=== PATIENT | male | born 1945 | race Caucasian/White ===

== ENCOUNTER 2017-08-06 10:58 | Outpatient (CLI) | payer MEDICARE, BC ==
[~2017-08-06] VITALS: Ht 177.8 cm; Wt 86.8 kg
--- NOTE | ~2017-08-06 | HEMODYNAMI ---
PATIENT:CHRISTOPHER UPTON MEDICAL RECORD: [id number] : 47 LOCATION:DLeeannaCAT ADMISSION DATE: 08/06/17 Generatedon:08/06/201713:41 Patient name: CHRISTOPHER UPTON Patient #: [id number] SSN: : 1945 Date of study: 08/06/2017 Page: Of Hemodynamic Procedure Report Patient Data Patient Demographics Procedure consent was obtained First Name: CHRISTOPHER Gender: Male Last Name: ALEXSANDRA : 1945 [facility] Initial: MIRTA Age: 72 year(s) Patient #: [id number] Race: Unknown Additional ID: [id number] Contact details Address: [address] [place] [address] COTY FARIAS State: [place] City: [place] Zip code: [address] Admission Admission Data Admission Date: 08/06/2017 Admission Time: 10:58 Admit Source: Other Height (in.): 70 BSA: 2.05 (m2) Height (cm.): 177.8 BMI: 27.52 (kg/m2) Weight (lbs.): 191.8 Weight (kg.): 87 Lab Results Lab Result Date: 08/06/2017 Lab Result Time: 11:20 Biochemistry Name Units Result Min Max BUN mg/dl 22 --(----)-* 7 18 Creatinine mg/dl 1.2 --(---*)-- 0.6 1.3 CBC Name Units Result Min Max Hematocrit % 47 --(-*--)-- 42 54 Hemoglobin g/dl 16.1 --(--*-)-- 13.5 17.5 Procedure Procedure Types Cath Procedure Diagnostic Procedure LHC LHC w/Coronaries w/Grafts Miscellaneous Procedures Moderate Sedation up to 30 minutes Procedure Description Procedure Date Procedure Date: 08/06/2017 Procedure Start Time: 13:12 Procedure End Time: 13:41 Procedure Staff Name Function Veto Kan MD Performing Physician Allen Deleon RT Monitor Rick Connor RT Scrub Dexter Obrien RN Nurse Tosha Dolan RN Nurse Procedure Data Cath Procedure Fluoroscopy Diagnostic fluoroscopy Total fluoroscopy Time: 3.7 time: 3.7 min min Diagnostic fluoroscopy Total fluoroscopy dose: 416 dose: 416 mGy mGy Contrast Material Contrast Material Type Amount (ml) Isovue 300 80 Entry Location Entry Primary Successful Side Size Upsize Upsize Entry Closure Succes sful Closure Location (Fr) 1 (Fr) 2 (Fr) Remarks Device Remarks Femoral Right 5 Fr Exoseal artery Estimated blood loss: 10 ml Diagnostic catheters Device Type Used For End Catheter Placement Cordis 5Fr JL 4.0 Procedure Catheter (MP) Diagnostic Infinity 5Fr Procedure AR 2 MOD catheter Diagnostic Infinity 5Fr Procedure IM catheter Cordis 5Fr Pigtail Procedure Catheter (MP) Procedure Complications No complications Procedure Medications Medication Administration Route Dosage 0.9% NaCl I.V. 100 ml/hr Lidocaine 2% added to field 20 Oxygen NC 2 l/min Heparin Flush Bag added to field 2 bags (1000units/500ml NS) Fentanyl I.V. 50 mcg Versed I.V. 1 mg Versed I.V. 1 mg Fentanyl I.V. 50 mcg Hemodynamics Rest BSA: 2.05 (m2) HGB: 16.1 (g/dl) O2 Consumption: Estimated: 227.53 (ml/min) O2 Co nsumption indexed: Estimated:110.99 (ml/min/m) Heart Rate: 58 (bpm) Pressure Samples Time Site Value (mmHg) Purpose Heart Use Rate(bpm) 13:16 AO 157/74(105) Snapshot 55 13:25 LV 173/11,21 Snapshot 59 13:26 AO 163/71(105) Pullback 58 13:26 LV 164/7,17 Pullback 58 Gradients Valve Time Site 1 Site 2 Mean SEP/DFP Peak To Heart Use (mmHg) (sec/min) Peak Rate (mmHg) (bpm) Aortic 13:26 LV AO 8 16 1 58 164/7,17 163/71(105) Calculations Valve P-P Mean Valve Index Valve Source Name Gradient Area Flow (cm2) Aortic 1 8 1 8 Snapshots Pre Cath Intra NCS Post Cath Vital Signs Time Heart Resp SPO2 etCO2 NIBP (mmHg) Rhythm Pain Sedation Rate (ipm) (%) (mmHg) Status Level (bpm) 12:55:05 61 22 98 0 180/88(141) NSR 0 (11) 10(A) , No pain 13:00:02 58 17 99 26.3 163/87(131) NSR 0 (11) 10(A) , No pain 13:04:55 54 18 99 37.6 163/82(132) NSR 0 (11) 10(A) , No pain 13:09:44 63 15 97 0 146/76(122) NSR 0 (11) 9(A) , No pain 13:14:43 56 16 98 36.1 Measuring NSR 0 (11) 9(A) , No pain 13:15:14 54 14 98 9.7 151/75(126) NSR 0 (11) 9(A) , No pain 13:20:05 69 14 98 10.5 154/89(125) NSR 0 (11) 9(A) , No pain 13:24:53 56 14 98 0 155/83(127) NSR 0 (11) 10(A) , No pain 13:29:44 57 14 98 0 151/81(120) NSR 0 (11) 10(A) , No pain 13:34:35 56 23 98 27.8 157/84(132) NSR 0 (11) 10(A) , No pain 13:39:34 54 24 98 23.3 Measuring NSR 0 (11) 10(A) , No pain 13:40:05 59 17 98 33.8 167/83(136) NSR 0 (11) 10(A) , No pain Medications Time Medication Route Dose Verified Delivered Reason Notes Effe ctiveness by by 12:45:52 0.9% NaCl I.V. 100 Veto Tosha used for ml/hr Lucius Dolan RN procedure 12:46:07 Lidocaine 2% added 20ml Veto Veto for local to vial Lucius Kan MD anesthetic field 12:46:20 Oxygen NC 2 Veto Tosha used for l/min Lucius Dolan RN procedure 12:46:37 Heparin Flush added 2 Veto Veto used for Bag to bags Lucius Kan MD procedure (1000units/500ml field NS) 13:05:14 Fentanyl I.V. 50 Veto Tosha for mcg Lucius Dolan RN sedation 13:05:24 Versed I.V. 1 mg Veto Tosha for Lucius Dolan RN sedation 13:11:17 Versed I.V. 1 mg Veto Dolan RN sedation 13:11:27 Fentanyl I.V. 50 [place]eto [facility] [place] Dolan RN sedation Procedure Log Time Note 12:30:01 Dexter Obrien RN sent for patient. Start room use. 12:38:29 Informed consent obtained and on chart 12:38:33 Admit Source: Other 12:44:58 Diagnostic Cath status Elective 12:45:02 Time tracking: Regular hours 12:45:05 Plan of Care:Hemodynamics will remain stable., Cardiac rhythm will remain stable., Comfort level will be maintained., Respiratory function will remain adequate., Patient/ family verbilizes understanding of procedure., Procedure tolerated without complication., Recovers from procedure without complications.. 12:45:18 H&P Date Dictated: 07/09/2017 Within 30 days and on chart., H&P Addendum completed by physician on day of procedure. (MUST COMPLETE FOR ALL OUTPATIENTS). 12:45:52 0.9% NaCl 100 ml/hr I.V. was administered by Tosha Dolan RN; used for procedure; 12:46:07 Lidocaine 2% 20ml vial added to field was administered by Veto Kan MD; for local anesthetic; 12:46:20 Oxygen 2 l/min NC was administered by Tosha Dolan RN; used for procedure; 12:46:37 Heparin Flush Bag (1000units/500ml NS) 2 bags added to field was administered by Veto Kan MD; used for procedure; 12:48:03 Patient received from Pre/Post Procedure Room to CCL 1 Alert and oriented. Tansferred to table in Supine position. 12:48:04 Warm blankets applied, and barbara hugger turned on for patient comfort. 12:48:05 Correct patient and procedure confirmed by team. 12:49:53 Lab Result : BUN 22 mg/dl 12:49:53 Lab Result : Creatinine 1.2 mg/dl 12:49:53 Lab Result : Hematocrit 47 % 12:49:53 Lab Result : Hemoglobin 16.1 g/dl 12:50:17 Lab results completed and on chart. 12:51:13 ECG and BP/O2 sat monitors applied to patient. 12:53:56 Vital chart was started 12:58:53 Baseline sample Acquired. 12:59:02 Rhythm: sinus bradycardia 12:59:04 Full Disclosure recording started 12:59:05 Pre-procedure instructions explained to patient. 12:59:05 Pre-op teaching completed and patient verbalized understanding. 12:59:09 Family in patients room. 12:59:10 Patient NPO since Midnight. 12:59:13 Is the patient allergic to Iodine/contrast media? No. 12:59:14 Is patient on blood thinner?No 12:59:18 Patient diabetic? No. 12:59:25 Previous problem with sedation/anesthesia? No ? 12:59:26 Snore? Yes 12:59:28 Sleep apnea? No 12:59:29 Deviated septum? No 12:59:30 Opens mouth fully? Yes 12:59:30 Sticks out tongue? Yes 12:59:32 Airway obstruction? No ? 12:59:35 Dentures? No ? 12:59:38 Pre procedure: right dorsailis pedis pulse 1+ Palpable, but thready & weak; easily obliterated 12:59:42 Patient pain scale 0/10 ?. 12:59:51 IV patent on arrival in left forearm with 0.9% NaCl at [facility]. 12:59:55 Right groin area was prepped with chlora-prep and draped in sterile fashion 12:59:56 Alarms reviewed by R. N. 12:59:57 Sharps counted by scrub and verified by R.N. 13:00:01 Use device set Femoral Dx 13:00:02 Tegaderm 4 x 4 ([id number]) opened to sterile field. 13:00:04 ACIST: Hand Control (47336) opened to sterile field. 13:00:08 ACIST: Manifold (53337) opened to sterile field. 13:00:09 ACIST: Syringe (60887) opened to sterile field. 13:00:09 Bag Decanter (2002S) opened to sterile field. 13:00:10 Medline Cath Pack ([id number]) opened to sterile field. 13:00:10 Terumo 5Fr Hartsel Sheath opened to sterile field. 13:00:11 St Juan 260cm J .035 wire opened to sterile field. 13:00:12 Diagnostic Infinity 5Fr Multipack catheter opened to sterile field. 13:04:23 --------ALL STOP TIME OUT------ 13:04:24 Final Timeout: patient, procedure, and site verified with staff and physician. All members of the team are in agreement. 13:04:26 Right groin site verified by team. 13:04:28 Physical assessment completed. ASA score P 2 - A patient with mild systemic disease as per Veto Kan MD. 13:04:32 Sedation plan: IV Moderate Sedation Medication:Versed, Fentanyl 13:05:14 Fentanyl 50 mcg I.V. was administered by Tosha Dolan RN; for sedation; 13:05:24 Versed 1 mg I.V. was administered by Tosha Dolan RN; for sedation; 13:06:02 NEEDLE: Cook 18G 7cm Percutaneous Entry needle ([id number]) opened to sterile field. 13:07:53 Procedure type changed to Cath procedure, Diagnostic procedure, LHC, LHC w/Coronaries w/Grafts, Miscellaneous Procedures, Moderate Sedation up to 30 minutes 13:08:00 Patient Weight : 191.8 lbs 13:08:06 Patient Height : 70 inches 13:11:17 Versed 1 mg I.V. was administered by Tosha Dolan RN; for sedation; 13:11:27 Fentanyl 50 mcg I.V. was administered by Tosha Dolan RN; for sedation; 13:12:32 Procedure started. 13:12:55 Local anesthetic to right femoral artery with Lidocaine 2% by Veto Kan MD.INITIAL ACCESS ONLY 13:14:13 A 5 Fr sheath was inserted into the Right Femoral artery 13:15:04 A Cordis 5Fr JL 4.0 Catheter () was advanced over the wire and used for Procedure. 13:15:58 LCA angiography performed. 13:16:31 Catheter exchanged over wire. 13:17:38 A Diagnostic Infinity 5Fr AR 2 MOD catheter was advanced over the wire and used for Procedure. 13:18:01 RCA angiography performed. 13:18:33 SVG to RCA angiography performed. 13:21:02 SVG to Diag angiography performed. 13:21:22 Skip graft to OM1 and OM2. 13:21:25 Catheter exchanged over wire. 13:21:31 A Diagnostic Infinity 5Fr IM catheter was advanced over the wire and used for Procedure. 13:23:47 REID to LAD angiography performed. 13:24:26 Catheter exchanged over wire. 13:24:31 A Cordis 5Fr Pigtail Catheter (MP) was advanced over the wire and used for Procedure. 13:25:44 LV angiography performed. 13:25:45 LV gram done using SMALL 13:25:55 EF : 50 % 13:26:25 LV hemodynamics recorded. 13:26:28 Injector settings: Ml/sec: 10, Volume: 20, 13:33:06 Catheter removed. 13:33:14 Cordis 5Fr Exoseal opened to sterile field. 13:33:45 Sheath removed intact; hemostasis achieved with Exoseal to the Right Femoral artery. 13:33:48 Procedure ended.(Physican Out) 13:36:48 Fluoroscopy time 03.70 minutes. 13:36:58 Fluoroscopy dose: 416 mGy 13:36:58 Flurop Dose total: 416 13:37:03 Contrast amount:Isovue 300 80ml. 13:37:06 Sharps counted by scrub and verified by R.N. 13:37:07 Insertion/operative site no bleeding no hematoma. 13:37:12 Post-op/insertion site Right Femoral artery dressed using a 4 x 4 and Tegaderm. 13:37:13 Post Procedure Pulses reassessed and unchanged 13:37:16 Post-procedure physical assessment completed. ASA score P 2 - A patient with mild systemic disease as per Veto Kan MD. 13:37:19 Post procedure rhythm: unchanged. 13:37:21 Estimated blood loss: 10 ml 13:37:24 Post procedure instruction explained to patient.Patient verbalizes understanding. 13:37:24 Patient needs reinforcement of post procedure teaching. 13:37:32 Procedure and supply charges have been captured, reviewed, submitted and are correct. 13:37:35 Procedure Complication : No complications 13:41:04 Vital chart was stopped 13:41:05 See physician's report for complete and final results. 13:41:15 Report given to Pre/Post Procedure Room. 13:41:18 Patient transfered to Pre/Post Procedure Room with Stretcher. 13:41:22 Procedure ended. 13:41:22 Full Disclosure recording stopped 13:41:25 End room use (Document Last) Device Usage Item Name Manufacture Quantity Catalog Hospital Part Current Minimal Lot# / Number Charge Number Stock Stock Serial# Code Tegaderm 4 x 3M 1 1626W [id number] [id number] 5 4 (1626W) ACIST: Hand Acist 1 34890 892651 386184 154649 5 Control Medical (19068) Systems Inc ACIST: Acist 1 76535 278347 756096 615077 5 Manifold Medical (99921) Systems Inc ACIST: Acist 1 19090 440654 617945 449566 20 Syringe Medical (18896) Systems Inc Bag Decanter Microtek 1 2001S 434567 84663 592573 5 (2001S) Medical Inc. Medline Cath Cardinal 1 [id number] 215879 13228 172211 5 Pack Health ([id number]) Terumo 5Fr Terumo 1 BXQ868 430167 618390 057[address] [facility] [address] Juan 1 256794 142876 762878 045990 30 260cm J .035 wire Diagnostic Cardinal 1 VM3366 708427 45973 404112 30 Infinity 5Fr Health Multipack catheter NEEDLE: Cook [employer] Packets Medical 1 S97157 621250 53461 545758 5 18G 7cm Percutaneous Entry needle (I14339) Cordis 5Fr Cardinal 1 180291 5 JL 4.0 Health Catheter (MP) Diagnostic Cardinal 1 [id number] 591959 119700 436764 20 Infinity 5Fr Health AR 2 MOD catheter Diagnostic Cardinal 1 [id number] 296826 361323 413248 5 Infinity 5Fr Health IM catheter Cordis 5Fr Cardinal 1 739898 5 Pigtail Health Catheter (MP) Cordis 5Fr Cardinal 1 EX500 323262 972469 535901 10 [facility] [employer] Signature Audit [place] Stage Time Signature Unsigned Intra-Procedure 08/06/2017 Allen Deleon 1:41:40 PM RT(R) Signatures Monitor : Allen Deleon RT Signature : Date : Time : [id number] [place] [address]
[~2017-08-06 10:58] MED LIST: ASPIRIN325 MG PO; BYSTOLIC2.5 MG PO; CELEBREX200 MG PO; CRESTOR10 MG PO; MEDROL DOSE PACK4 MG PO; PRILOSEC20 MG PO; RESTORIL15 MG PO; TYLENOL W/CODEIN5 ML PO; ZITHROMAX200 MG/5 M PO
[2017-08-06] MEDS ORDERED: LIPITOR10 MG PO (11:17)
[2017-08-06] MEDS ORDERED: DUEXIS 800-26.1 EACH PO (11:18)
[2017-08-06 11:26] VITALS: BP 166/74; Ht 177.8 cm; Wt 86.8 kg
[2017-08-06 11:31] LABS: BASOPHILS 0.3 % (0-2); EOSINOPHILS 1.7 % (0-7); HEMOGLOBIN 16.1 g/dL (13.5-17.5); IMMATURE GRANULOCYTES 0.6 % (0-5); MCHC 34.3 g/dL (31.0-37.0); MCV 93.4 fL (80.0-100.0); MEAN PLATELET VOLUME 10.5 fL (7.4-10.4); MONOCYTES 9.3 % (2-11); NEUTROPHILS 65.1 % (40-80); PLATELET COUNT 241 10x3/uL (130-400); RBC 5.03 10x6/uL (4.20-6.10); WBC 7.7 10x3/uL (4.8-10.8)
[2017-08-06 11:38] LABS: CALCIUM 9.1 mg/dL (8.5-10.1); CREATININE - SERUM 1.2 mg/dL (0.6-1.3)
== END 2017-08-06 16:20 | disposition home or self-care (01) ==
LOC: D.CATH 10:58
PROVIDERS: Internal Medicine Cardiovascular Disease
DX: I25.119 Atherosclerotic heart disease of native coronary artery with unspecified angina pectoris (principal); R06.00 Dyspnea, unspecified; R94.39 Abnormal result of other cardiovascular function study; Z01.812 Encounter for preprocedural laboratory examination; Z95.1 Presence of aortocoronary bypass graft

== ENCOUNTER 2018-02-05 10:22 | Inpatient (IN) | payer MEDICARE, BC ==
[~2018-02-05] VITALS: Ht 177.8 cm; Wt 88.5 kg
--- NOTE | ~2018-02-05 | CN ---
PATIENT NAME:CHRISTOPHER UPTON MEDICAL RECORD: [id number] : 47 LOCATION:D.MS Chavez220 ADMIT DATE: 02/05/18 ACCOUNT: [id number] CONSULTING PHYSICIAN: SUHAIL DIA MD REFERRING PHYSICIAN: ANJELICA CASTELLANOS DO DATE OF CONSULTATION: 02/05/2018 CONSULT REQUESTING PHYSICIAN: Anjelica Castellanos DO REASON FOR CONSULTATION: Syncopal episode, questionable pneumonia. HISTORY OF PRESENT ILLNESS: Mr. Upton is a 72-year-old very pleasant gentleman who was diagnosed with pneumonia last week. He was given 3 doses of Rocephin IM and also given p.o. Levaquin. He was running fever from 102 to 104 at home. This morning while he was in Dr. Abraham's office, while the nurse was checking his blood pressure, the patient collapsed and the patient was hypotensive with a blood pressure in 90s. Now, awake and alert. Denies any fever and chill, no night sweats, no headache, just feeling weak. There is cough without much sputum production. There is no associated orthopnea and PND. REVIEW OF SYSTEMS: Mainly in the history of present illness. PAST MEDICAL HISTORY: 1. Hypertension. 2. Coronary artery disease. 3. History of skin cancer. 4. History of epiglottitis. 5. Gastroesophageal reflux disease. 6. History of gout. PAST SURGICAL HISTORY: 1. Surgery for carpal tunnel syndrome. 2. CABG. 3. Appendectomy. ALLERGIES: HE IS ALLERGIC TO NEOMYCIN, BACITRACIN, POLYMYXIN. PRESENT MEDICATIONS: [employer] is reviewed. PERSONAL AND SOCIAL HISTORY: The patient is and lives with his . He is an ex-smoker. He is a nondrinker, but he is drinking socially. FAMILY HISTORY: Noncontributory. PHYSICAL EXAMINATION: GENERAL: Now, the patient is lying comfortably in bed. He is not in acute distress. VITAL SIGNS: The blood pressure 143/79, pulse is 56, respiration is 18, temperature is 98.6, SpO2 is 96% on 2 liters nasal cannula. HEENT: Conjunctivae are pink. Sclerae are not icteric. NECK: Supple, no JVD. CHEST: There are bibasilar crackles. No wheezing. HEART: Rate and rhythm is regular, normal sound, no murmur. There are no carotid bruit. ABDOMEN: Soft, bowel sounds present. No hepatosplenomegaly. CONSULT REPORT [id number] CHRISTOPHER UPTON RECTAL: Deferred. EXTREMITIES: No cyanosis, no clubbing, no pedal edema. SKIN: Warm, normal turgor. CENTRAL NERVOUS SYSTEM: The patient is awake and alert. There are no obvious cranial nerve abnormality. The gait was not tested. IMPRESSION: 1. Tracheobronchitis. 2. Syncopal episode. The differential diagnosis, but not limited to; A. Dehydration. B. Hypotension. C. Vasovagal, rule out cardiac arrhythmias. I will doubt transient ischemic attack. 3. Fever of 102 to 104. 4. Hypertension. 5. Ex-smoker. 6. Suspect chronic obstructive pulmonary disease. 7. Coronary artery disease with gastroesophageal reflux disease. 8. Congestive heart failure with elevated proBNP. RECOMMENDATION: 1. Check the CT scan of the head. Discontinue vancomycin and meropenem. 2. Start him on Levaquin IV. 3. Follow up labs and chest radiograph. 4. Cardiac workup per Dr. Kan. Discussed with family. Dr. Castellanos, thank you for involving me in the care of Ms. Upton. TRANSINT:[id number] Voice Confirmation ID: [id number] DOCUMENT ID: [id number] SUHAIL DIA MD at 1806 CC: EMILY ABRAHAM [id number] DICTATION DATE: 02/05/181813 FORECLOSURE CLERK: 02/05/181946 DIS IN 02/07/18 [id number] [place] [address]
--- NOTE | ~2018-02-05 | EC ---
PATIENT:CHRISTOPHER UPTON DATE OF SERVICE: 02/05/18 SEX: M MEDICAL RECORD: [id number] DATE OF : [birth year] LOCATION:D.MS Mac AGE OF PATIENT: 72 ADMISSION DATE: 02/05/18 REFERRING PHYSICIAN: INTERPRETING PHYSICIAN: HERACLIO PEREZ MD ECHOCARDIOGRAM REPORT ECHO CHARGES 4 ECHO COMPLETE Date: 02/05 CLINICAL DIAGNOSIS: INC/BNP/SOB HX OF CAD/CABG ECHOCARDIOGRAPHIC MEASUREMENTS (adult normal given) AC root (d.<3.7cm) 3.2 cm LV Septum d (<1.2 cm> 1.8 cm Valve Excursion 2.1 cm LV Septum (systole) 1.9 cm Left Atria (s.<4.0cm> 3.8 cm LVPW d(<1.2cm) 1.5 cm RV (d.<2.3cm) 4.1 cm LVPW (sytole) 1.7 cm LV diastole(<5.6CM) 5.6 cm MV E-F(>70mm/sec) cm LV systole 4.2 cm LVOT Diameter 1.8 cm MV exc.(>10mm) 1.5 cm Est.ejection fraction (50-75%) % DOPPLER: LVIT cm/sec A 57.0 cm/sec E 80.0 cm/sec LA cm/sec RVSP 35 mmHg LVOT 95 cm/sec AOP1/2T m/s Asc. Ao 159 cm/sec RVOT cm/sec RA cm/sec PA 173 cm/sec AV Gradient Peak 10.17mmHg AV Mean 5.08 mmHg AV Area 1.2 cm MV Gradient Peak 4.67 mmHg MV Mean 1.48 mmHg MV Area cm COMMENTS: Gallery Or Museum Technician: Yas CUNNINGHAM Roller Coaster Engineer: 2 Dr. Kan TAPE# PACS Pericardial Effusion N DATE OF SERVICE: 02/06/2018 PROCEDURE: Echocardiogram. FINDINGS: 1. Left ventricular chamber size is mildly dilated. Left ventricular systolic function lower limits of normal at 45% to 50%. 2. Left atrium is within normal limits at 3.8 cm. Right atrium and right ventricle chamber sizes are mildly dilated. 3. Valvular structures have normal structure and motion. ECHOCARDIOGRAM REPORT [id number] CHRISTOPHER UPTON 4. Doppler interrogation reveals mild to moderate mitral regurgitation, mild tricuspid regurgitation, no other valvular insufficiency or stenosis. 5. No evidence of pericardial effusion or left ventricular thrombus. TRANSINT:[id number] Voice Confirmation ID: [id number] DOCUMENT ID: [id number] HERACLIO PEREZ MD at 1403 CC: [id number] DICTATION DATE: 02/06/18 1217 ELL TUTOR: 02/06/18 1231 DIS IN 02/07/18 [id number] [place] [id number]
[~2018-02-05 10:22] MED LIST changes: +DUEXIS 800-26.1 EACH PO; +LIPITOR10 MG PO
[2018-02-05 11:09] LABS: BASOPHILS 0.1 % (0-2); EOSINOPHILS 0.3 % (0-7); HEMOGLOBIN 12.7 g/dL (13.5-17.5); IMMATURE GRANULOCYTES 0.7 % (0-5); LYMPHOCYTES 14.6 % (15-50); MCHC 34.3 g/dL (31.0-37.0); MCV 90.2 fL (80.0-100.0); MEAN PLATELET VOLUME 10.6 fL (7.4-10.4); MONOCYTES 17.3 % (2-11); RDW 13.3 % (11.5-14.5)
[2018-02-05 11:14] LABS: PLATELET COUNT 148 10x3/uL (130-400)
[2018-02-05 11:24] LABS: ALBUMIN 2.7 g/dL (3.4-5.0); ALKALINE PHOSPHATASE 80 U/L (46-116); ALT (SGPT) 77 U/L (10-68); APTT 35.7 SECONDS (22.8-39.4); BILIRUBIN - TOTAL 0.53 mg/dL (0.2-1.3); CALC OSMOLALITY 277 mosm/kg (275-300); CALCIUM 8.3 mg/dL (8.5-10.1); CHLORIDE - SERUM 102 mmol/L (98-107); CREATININE - SERUM 1.4 mg/dL (0.6-1.3); GLUCOSE 146 mg/dL (74-106); POTASSIUM - SERUM 3.5 mmol/L (3.5-5.1); PROTEIN - SERUM 6.5 g/dL (6.4-8.2); SODIUM 136 mmol/L (136-145); UREA NITROGEN 20 mg/dL (7-18); eGFR NON AFRICAN AMERICAN 53 mL/min (90-120)
[2018-02-05 11:31] LABS: INR 1.15 (0.85-1.17); PROTIME 14.3 SECONDS (11.6-15.0)
[2018-02-05 11:39] LABS: AMYLASE - SERUM 37 U/L (25-115); CKMB 1.6 U/L (0.0-3.6); CREATINE KINASE 51 UL (21-232); D-DIMER-QUANTITATIVE 3.23 ug/mLFEU (0.20-0.54); LIPASE 155 U/L (73-393); PRO BNP 2443 pg/mL (0-125); TROPONIN-I 0.039 ng/mL (0.000-0.060)
[2018-02-05 13:31] LABS: APPEARANCE HAZY (CLEAR); BILIRUBIN NEGATIVE (NEGATIVE); COLOR YELLOW (YELLOW); GLUCOSE NEGATIVE (NEGATIVE); KETONE MODERATE mg/dL (NEGATIVE); NITRITE NEGATIVE (NEGATIVE); PROTEIN 1+ mg/dL (NEGATIVE); SPECIFIC GRAVITY 1.015 (1.005-1.020); UROBILINOGEN NORMAL (NORMAL)
[2018-02-05 13:33] LABS: BACTERIA MODERATE /hpf (NONE SEEN); GRANULAR CAST 0-5 /lpf (NONE SEEN); MUCUS <1+ /lpf (NONE SEEN); RED CELLS - URINE 0-5 /hpf (0-5); WHITE CELLS - URINE 0-5 /hpf (0-5)
[2018-02-05 16:02] LABS: CKMB 1.9 U/L (0.0-3.6); CREATINE KINASE 50 UL (21-232); TROPONIN-I 0.017 ng/mL (0.000-0.060)
[2018-02-05 16:30] VITALS: BP 143/79
[2018-02-05] MEDS ORDERED: LEVAQUIN500 MG PO (16:38)
[2018-02-05] MEDS ORDERED: ZYLOPRIM300 MG PO (16:39)
[2018-02-05 16:40] VITALS: BMI 28.0
[2018-02-05 21:15] VITALS: BP 155/81
[2018-02-05 22:24] LABS: CKMB 2.2 U/L (0.0-3.6); CREATINE KINASE 46 UL (21-232); TROPONIN-I < 0.017 ng/mL (0.000-0.060)
[2018-02-06 00:45] VITALS: BP 138/72
[2018-02-06 04:21] LABS: BASOPHILS 0 % (0-2); EOSINOPHILS 0 % (0-7); HEMATOCRIT 35.5 % (42.0-54.0); HEMOGLOBIN 12.4 g/dL (13.5-17.5); IMMATURE GRANULOCYTES 0.5 % (0-5); MCH 30.9 pg (26.0-34.0); MCHC 34.9 g/dL (31.0-37.0); MCV 88.5 fL (80.0-100.0); MEAN PLATELET VOLUME 10.5 fL (7.4-10.4); MONOCYTES 6.1 % (2-11); NEUTROPHILS 84.4 % (40-80); RBC 4.01 10x6/uL (4.20-6.10); RDW 13.1 % (11.5-14.5); WBC 7.5 10x3/uL (4.8-10.8)
[2018-02-06 04:22] LABS: PLATELET COUNT 178 10x3/uL (130-400)
[2018-02-06 04:50] LABS: ALBUMIN 2.6 g/dL (3.4-5.0); ALKALINE PHOSPHATASE 76 U/L (46-116); ALT (SGPT) 67 U/L (10-68); BILIRUBIN - TOTAL 0.44 mg/dL (0.2-1.3); CALC OSMOLALITY 277 mosm/kg (275-300); CALCIUM 8.8 mg/dL (8.5-10.1); CARBON DIOXIDE 25.9 mmol/L (21.0-32.0); CHLORIDE - SERUM 102 mmol/L (98-107); CKMB 2.1 U/L (0.0-3.6); CREATINE KINASE 40 UL (21-232); GLUCOSE 148 mg/dL (74-106); POTASSIUM - SERUM 3.8 mmol/L (3.5-5.1); PROTEIN - SERUM 6.5 g/dL (6.4-8.2); SODIUM 137 mmol/L (136-145); UREA NITROGEN 15 mg/dL (7-18)
[2018-02-06 05:05] LABS: TROPONIN-I 0.017 ng/mL (0.000-0.060); eGFR NON AFRICAN AMERICAN 78 mL/min (90-120)
[2018-02-06 08:02] VITALS: BP 109/87
[2018-02-06 12:13] VITALS: BP 113/68
[2018-02-06 13:22] VITALS: Ht 177.8 cm; Wt 88.5 kg
[2018-02-06 16:40] VITALS: BP 123/63
[2018-02-06 20:00] VITALS: BP 148/65
[2018-02-06 20:06] VITALS: BP 131/68
[2018-02-07 03:52] VITALS: BP 126/55
[2018-02-07 05:03] LABS: BASOPHILS 0.1 % (0-2); EOSINOPHILS 0.3 % (0-7); HEMATOCRIT 35.2 % (42.0-54.0); IMMATURE GRANULOCYTES 0.6 % (0-5); LYMPHOCYTES 13.6 % (15-50); MCH 30.5 pg (26.0-34.0); MCHC 34.1 g/dL (31.0-37.0); MCV 89.3 fL (80.0-100.0); MEAN PLATELET VOLUME 10.7 fL (7.4-10.4); MONOCYTES 14.1 % (2-11); NEUTROPHILS 71.3 % (40-80); PLATELET COUNT 235 10x3/uL (130-400); RBC 3.94 10x6/uL (4.20-6.10); RDW 13.2 % (11.5-14.5); WBC 9.8 10x3/uL (4.8-10.8)
[2018-02-07 06:04] LABS: ALBUMIN 2.5 g/dL (3.4-5.0); ANION GAP 10.7 mmol/L (8-16); BILIRUBIN - TOTAL 0.45 mg/dL (0.2-1.3); CALCIUM 8.4 mg/dL (8.5-10.1); CARBON DIOXIDE 27.8 mmol/L (21.0-32.0); CREATININE - SERUM 1.1 mg/dL (0.6-1.3); POTASSIUM - SERUM 3.5 mmol/L (3.5-5.1)
[2018-02-07 08:10] VITALS: BP 115/76
[2018-02-07] MEDS ORDERED: DOXYCYCLINE HY100 M2 PO (12:12)
[2018-02-07] MEDS ORDERED: MUCINEX600 MG PO (12:12)
[2018-02-07] MEDS ORDERED: FLORAJEN3 CAPS460 MG PO (12:12)
[2018-02-07] MEDS ORDERED: TESSALON PERLE100 MG PO (12:12)
== END 2018-02-07 13:07 | disposition home or self-care (01) | DRG 291 ==
LOC: D.ER 10:22 → D.EDHOLD 14:35 → D.MS 14:35
PROVIDERS: Family Medicine
DX: I11.0 Hypertensive heart disease with heart failure (principal); J18.9 Pneumonia, unspecified organism; J44.0 Chronic obstructive pulmonary disease with (acute) lower respiratory infection; E86.0 Dehydration; J40 Bronchitis, not specified as acute or chronic; I50.21 Acute systolic (congestive) heart failure; I25.10 Atherosclerotic heart disease of native coronary artery without angina pectoris; K21.9 Gastro-esophageal reflux disease without esophagitis; R55 Syncope and collapse; E78.5 Hyperlipidemia, unspecified; Z95.1 Presence of aortocoronary bypass graft; Z87.891 Personal history of nicotine dependence

== ENCOUNTER → 2018-08-03 09:13 | Outpatient (CLI) | payer MEDICARE, BC ==
[2018-02-06 13:22] VITALS: BMI 27.9
[~2018-08-03 09:13] MED LIST changes: +DOXYCYCLINE HY100 M2 PO; +FLORAJEN3 CAPS460 MG PO; +LEVAQUIN500 MG PO; +MUCINEX600 MG PO; +TESSALON PERLE100 MG PO; +ZYLOPRIM300 MG PO
[2018-08-03 12:37] LABS: MACROPHAGES BF 42 %; NEUT - BF 41 %
== END | disposition home or self-care (01) ==
LOC: D.LABREF 09:13
PROVIDERS: Orthopaedic Surgery
DX: M25.561 Pain in right knee (principal)

== ENCOUNTER → 2018-08-17 15:24 | Outpatient (CLI) | payer MEDICARE, BC ==
[2018-02-06 13:22] VITALS: BMI 27.9
[~2018-08-17 15:24] MED LIST changes: +BENADRYL25 MG PO; +CENTRUM SILVER1 EACH PO
== END | disposition home or self-care (01) ==
LOC: D.LABREF 15:24
DX: M17.11 Unilateral primary osteoarthritis, right knee (principal); Z11.8 Encounter for screening for other infectious and parasitic diseases

== ENCOUNTER → 2018-08-18 10:52 | Outpatient (CLI) | payer MEDICARE, BC ==
[2018-02-06 13:22] VITALS: BMI 27.9
== END | disposition home or self-care (01) ==
LOC: D.LABREF 10:52
DX: M16.11 Unilateral primary osteoarthritis, right hip (principal); Z11.8 Encounter for screening for other infectious and parasitic diseases

== ENCOUNTER 2018-08-19 10:00 | Inpatient (IN) | payer MEDICARE, BC ==
[~2018-08-19] VITALS: Ht 177.8 cm; Wt 85.5 kg
--- NOTE | ~2018-08-19 | MORECARE ---
CASE MANAGEMENT DISCHARGE SUMMARY PATIENT: CHRISTOPHER UPTON UNIT: [id number] ADM DATE: 08/26/18 AGE: 73 : 47 SEX: M ROOM/BED: D.2204 AUTHOR: DMITRI MOORE PHYSICIAN: REFERRING PHYSICIAN: SHANIQUE MARCH DO DATE OF SERVICE: 08/27/18 Discharge Plan Patient Name: CHRISTOPHER UPTON Facility: [facility]:[place] : 1945 Planned Disposition: Home with Home Health Anticipated Discharge Date: Discharge Date: Expected LOS: Initial Reviewer: [email or web address] Initial Review Date: 08/26/2018 Generated: 08/27/18 3:35 pm Comments DCP- Discharge Planning Updated by [email or web address]: Glenda Mckeon on 08/27/18 1:[address] Patient Name: CHRISTOPHER UPTON Admission Status: Urgent Accout number: [id number] Admission Date: 08-26-2018 : 1945 Admission Diagnosis: Attending: SHANIQUE MARCH Current LOS: 1 Anticipated DC Date: Planned Disposition: Home with Home Health Primary Insurance: MEDICARE A & B Discharge Planning Comments: CM met with patient to assess discharge planning needs. Patient is independent with his care at home. His will be the one to take him home. He has 1 step to enter his home. He has had a CPM, Ice and bedside commode delivered to his home. He would like to use [facility]. ALISHA signed and placed in chart. I spoke with Jamila at [facility] they will accept. CM will continue to follow and assist with DC planning. Regional Business Manager: Glenda Mckeon DCPIA - Discharge Planning Initial Assessment Updated by [email or web address]: Glenda Mckeon on 08/27/18 2:26 pm * Is the patient Alert and Oriented? Yes * How many steps to enter\exit or inside your home? * PCP [facility] * Pharmacy [facility] * Preadmission Environment Home with Family * ADLs Independent * Equipment Bedside Commode Rolling Walker * List name and contact numbers for known caregivers / representatives who currently or will assist patient after discharge: JAY JAY () [phone] * Verbal permission to speak to the caregivers and representatives has been obtained from the patient. N/A * Community resources currently utilized None * Additional services required to return to the preadmission environment? Yes * Can the patient safely return to the preadmission environment? Yes * Has this patient been hospitalized within the prior 30 days at any hospital? No Last DP export: 08/27/18 1:26 Patient Name: CHRISTOPHER UPTON Page [id number] at 1435 All edits/amendments must be made on the electronic document DICTATION DATE: 08/27/181434 ROLLER SKATER: ELÍAS 08/27/181434 RPT#: [id number] DC DATE: STATUS: ADM IN [facility] [address] [place] [address] END OF REPORT
--- NOTE | ~2018-08-19 | MORECARE ---
CASE MANAGEMENT DISCHARGE SUMMARY PATIENT: CHRISTOPHER UPTON UNIT: [id number] ADM DATE: 08/26/18 AGE: 73 : 46 SEX: M ROOM/BED: D.2205 AUTHOR: DMITRI MOORE PHYSICIAN: REFERRING PHYSICIAN: SHANIQUE MARCH DO DATE OF SERVICE: 08/27/18 Discharge Plan Patient Name: CHRISTOPHER UPTON Facility: [facility]:[place] : 1945 Planned Disposition: Home with Home Health Anticipated Discharge Date: Discharge Date: Expected LOS: Initial Reviewer: [email or web address] Initial Review Date: 08/26/2018 Generated: 08/27/18 3:45 pm Comments DCP- Discharge Planning Updated by [email or web address]: Glenda Mckeon on 08/27/18 1:[address] Patient Name: CHRISTOPHER UPTON Admission Status: Urgent Accout number: [id number] Admission Date: 08-26-2018 : 1945 Admission Diagnosis: Attending: SHANIQUE MARCH Current LOS: 1 Anticipated DC Date: Planned Disposition: Home with Home Health Primary Insurance: MEDICARE A & B Discharge Planning Comments: CM met with patient to assess discharge planning needs. Patient is independent with his care at home. His will be the one to take him home. He has 1 step to enter his home. He has had a CPM, Ice and bedside commode delivered to his home. He would like to use [facility]. ALISHA signed and placed in chart. I spoke with Jamila at [facility] they will accept. CM will continue to follow and assist with DC planning. Sample Maker Hand: Glenda Mckeon DCPIA - Discharge Planning Initial Assessment Updated by [email or web address]: Glenda Mckeon on 08/27/18 2:26 pm * Is the patient Alert and Oriented? Yes * How many steps to enter\exit or inside your home? * PCP [facility] * Pharmacy [facility] * Preadmission Environment Home with Family * ADLs Independent * Equipment Bedside Commode Rolling Walker * List name and contact numbers for known caregivers / representatives who currently or will assist patient after discharge: JAY JAY () [phone] * Verbal permission to speak to the caregivers and representatives has been obtained from the patient. N/A * Community resources currently utilized None * Additional services required to return to the preadmission environment? Yes * Can the patient safely return to the preadmission environment? Yes * Has this patient been hospitalized within the prior 30 days at any hospital? No External Providers External Provider: ANAB[facility]AChatty [facility] Next Contact Date: Service Request Date: Service Type: Resolution: Reviewer: Comments: Last DP export: 08/27/18 1:35 Patient Name: CHRISTOPHER UPTON Page 18189 at 1445 All edits/amendments must be made on the electronic document DICTATION DATE: 08/27/181443 GIS INSTRUCTOR: ELÍAS 08/27/181443 RPT#: [id number] DC DATE: STATUS: ADM IN [facility] [address] [place] [address] END OF REPORT
--- NOTE | ~2018-08-19 | MORECARE ---
CASE MANAGEMENT DISCHARGE SUMMARY PATIENT: CHRISTOPHER UPTON UNIT: [id number] ADM DATE: 08/26/18 AGE: 73 : 46 SEX: M ROOM/BED: D.2208 AUTHOR: OSCARDOC PHYSICIAN: REFERRING PHYSICIAN: SHANIQUE MARCH DO DATE OF SERVICE: 08/28/18 Discharge Plan Patient Name: CHRISTOPHER UPTON Facility: [facility]:[place] : 1945 Planned Disposition: Home with Home Health Anticipated Discharge Date: Discharge Date: 08/28/2018 Expected LOS: 0 Initial Reviewer: [email or web address] Initial Review Date: 08/26/2018 Generated: 08/28/18 4:57 pm Comments DCP- Discharge Planning Updated by [email or web address]: Glenda Mckeon on 08/28/18 12:[address] PATIENT DISCHARGING HOME TODAY WITH [facility] . CM WILL CONTINUE TO FOLLOW AND ASSIST WITH DC PLANNING DCP- Discharge Planning Updated by [email or web address]: Glenda Mckeon on 08/27/18 1:[address] Patient Name: CHRISTOPHER UPTON Admission Status: Urgent Accout number: [id number] Admission Date: 08-26-2018 : 1945 Admission Diagnosis: Attending: SHANIQUE MARCH Current LOS: 1 Anticipated DC Date: Planned Disposition: Home with Home Health Primary Insurance: MEDICARE A & B Discharge Planning Comments: CM met with patient to assess discharge planning needs. Patient is independent with his care at home. His will be the one to take him home. He has 1 step to enter his home. He has had a CPM, Ice and bedside commode delivered to his home. He would like to use [facility]. ALISHA signed and placed in chart. I spoke with Jamila at [facility] they will accept. CM will continue to follow and assist with DC planning. Thread Machine Operator: Glenda Mckeon DCPIA - Discharge Planning Initial Assessment Updated by [email or web address]: Glenda Mckeon on 08/27/18 2:26 pm * Is the patient Alert and Oriented? Yes * How many steps to enter\exit or inside your home? * PCP [facility] * Pharmacy [facility] * Preadmission Environment Home with Family * ADLs Independent * Equipment Bedside Commode Rolling Walker * List name and contact numbers for known caregivers / representatives who currently or will assist patient after discharge: JAY JAY () [phone] * Verbal permission to speak to the caregivers and representatives has been obtained from the patient. N/A * Community resources currently utilized None * Additional services required to return to the preadmission environment? Yes * Can the patient safely return to the preadmission environment? Yes * Has this patient been hospitalized within the prior 30 days at any hospital? No Last DP export: 08/28/18 12:51 Patient Name: CHRISTOPHER UPTON Page 02828 at 1557 All edits/amendments must be made on the electronic document DICTATION DATE: 08/28/181556 MESSENGER FLOORPERSON: ELÍAS 08/28/181556 RPT#: [id number] DC DATE:08/28/18 STATUS: DIS IN [facility] [address] [place] [address] END OF REPORT
--- NOTE | ~2018-08-19 | MORECARE ---
CASE MANAGEMENT DISCHARGE SUMMARY PATIENT: CHRISTOPHER UPTON UNIT: [id number] ADM DATE: 08/26/18 AGE: 73 : 47 SEX: M ROOM/BED: D.2208 AUTHOR: OSCARDOC PHYSICIAN: REFERRING PHYSICIAN: SHANIQUE MARCH DO DATE OF SERVICE: 08/28/18 Discharge Plan Patient Name: CHRISTOPHER UPTON Facility: [facility]:[place] : 1945 Planned Disposition: Home with Home Health Anticipated Discharge Date: Discharge Date: Expected LOS: Initial Reviewer: [email or web address] Initial Review Date: 08/26/2018 Generated: 08/28/18 2:50 pm Comments DCP- Discharge Planning Updated by [email or web address]: Glenda Mckeon on 08/28/18 12:[address] PATIENT DISCHARGING HOME TODAY WITH [facility] . CM WILL CONTINUE TO FOLLOW AND ASSIST WITH DC PLANNING DCP- Discharge Planning Updated by [email or web address]: Glenda Mckeon on 08/27/18 1:[address] Patient Name: CHRISTOPHER UPTON Admission Status: Urgent Accout number: [id number] Admission Date: 08-26-2018 : 1945 Admission Diagnosis: Attending: SHANIQUE MARCH Current LOS: 1 Anticipated DC Date: Planned Disposition: Home with Home Health Primary Insurance: MEDICARE A & B Discharge Planning Comments: CM met with patient to assess discharge planning needs. Patient is independent with his care at home. His will be the one to take him home. He has 1 step to enter his home. He has had a CPM, Ice and bedside commode delivered to his home. He would like to use [facility]. ALISHA signed and placed in chart. I spoke with Jamila at [facility] they will accept. CM will continue to follow and assist with DC planning. Camera Prototyping Engineer: Glenda Mckeon DCPIA - Discharge Planning Initial Assessment Updated by [email or web address]: Glenda Mckeon on 08/27/18 2:26 pm * Is the patient Alert and Oriented? Yes * How many steps to enter\exit or inside your home? * PCP [facility] * [facility] * Preadmission Environment Home with Family * ADLs Independent * Equipment Bedside Commode Rolling Walker * List name and contact numbers for known caregivers / representatives who currently or will assist patient after discharge: JAY JAY () [phone] * Verbal permission to speak to the caregivers and representatives has been obtained from the patient. N/A * Community resources currently utilized None * Additional services required to return to the preadmission environment? Yes * Can the patient safely return to the preadmission environment? Yes * Has this patient been hospitalized within the prior 30 days at any hospital? No Last DP export: 08/27/18 1:45 Patient Name: CHRISTOPHER UPTON Page 98201 at 1351 All edits/amendments must be made on the electronic document DICTATION DATE: 08/28/18 1350 FREIGHT ASSOCIATE: ELÍAS 08/28/18 1350 RPT#: [id number] DC DATE: STATUS: ADM IN [facility] [address] [place] [address] END OF REPORT
--- NOTE | ~2018-08-19 | OP ---
PATIENT NAME: CHRISTOPHER UPTON MEDICAL RECORD: [id number] :[birth year] LOCATION:D.MS [id number] ADMISSION DATE:08/26/18 SURGEON: PIETRO MARCH DO DATE OF OPERATION: 08/26/2018 PROCEDURE PERFORMED: Right total knee arthroplasty. PREOPERATIVE DIAGNOSIS: Right end-stage osteoarthritis of the right knee. POSTOPERATIVE DIAGNOSIS: Right end-stage osteoarthritis of the right knee. SURGEON: Pietro March DO INDICATIONS: Mr. Upton is a 73-year-old male who presented to my office having had injections in his knee in the past. Cortisone did not help at all. Tried Gelsyn and then 1 more shot of cortisone to no avail. This was affecting his activities of daily living. He could not walk and was even using a crutch at some point due to the pain and stiffness of that knee. He asked that I would replace his knee and is tired of dealing with it affecting activities of daily living, is aware of the risks and benefits including infection, bleeding, damage to nerves and vessels, need for further surgery, revision. He consented to the procedure. DESCRIPTION OF PROCEDURE: The patient was given a block by anesthesia in the preoperative area and taken to the operative suite, laid in supine position, given 2 grams of Ancef and 80 mg of gentamicin. Timeout was performed, everyone was in agreement of the correct side, site, patient and procedure. The right lower extremity was then prepped and draped in sterile fashion. The incision was then marked out and then Ioban was placed over that. A #10 blade was used to dissect down through the skin. Incision was made through the skin down to the capsule. All the vessels that were seen bleeding were coagulated with Aquamantys. At that time, the fresh blade was used to do a medial parapatellar approach capsulotomy and once that was completed, all the bleeders were coagulated on the capsule as well with the Aquamantys. The patella was then everted and some of the fat pad was removed. The patella was milled down in order to fit a 34 thin patella. The knee was then flexed up and the intramedullary canal was entered with a drill. Distal femur was then cut. The tibia was then exposed and cut as well. The knee was then brought to extension and any excess tibia had not been cut was removed at that time as well as the menisci and coagulation was done on the posterior capsule and medial and lateral aspects of the knee. The extension block then fit well and pins were removed from the pinning the guide from tibia and the knee was flexed up and the femur was measured to be 70. This was pinned and then the 4-in-1 cutting block was used to do the cuts on the femur. The cut bone was then removed. The trial was put into place. Tibia poly and tray were then tried to be floated and had to be forced in with a mallet and then as soon as I flexed it, I popped out medially indicating tight PCL. PCL was partially released if not fully at that time and then once again the tray and poly were put in and fit very well and with flexion and range of motion did not pop out. The rotation was then marked. This was removed. The patella was drilled at that time to fit the 34, three-peg thin patella. The lug holes for the femur were drilled as well through the trial. The tibia was then exposed and once the tibia was exposed, measured to be a 75 cruciate tray. This was drilled and punched and then irrigated thoroughly. The cement was then put into the tibia and on the tibial implant and packed in OPERATIVE REPORT [id number] CHRISTOPHER UPTON [facility]. Excess cement was removed. The femur was then put into place and then the cement was put on the patella. The patellar squeezer was used to put the patellar implant on. The excess cement was removed. The knee had been brought out to extension with the poly in between and any excess cement at that time was removed as well. The knee was thoroughly irrigated while cement dried and it ranged very well with the 10 poly, 12 poly was attempted to be inserted and went in forcefully but not easily. I then tried to put a #10 anterior stabilized E-poly in, which did not fit and went down to #10, which fitted very well. He has had to be somewhat forced and there was a very good fit and the knee ranged very easily and very well with good balance both in extension and flexion with varus and valgus stress and mid flexion as well. The knee was then irrigated and Surgicel beads and tobramycin and vancomycin powder placed into the knee capsule was then closed with #2 Ethibond in a zbeckx-xa-oyadd fashion and then the capsule was irrigated and more tobramycin and vancomycin powder and Surgicel beads were placed on it and the skin was closed with 2-0 Vicryl in inverted interrupted fashion and then ZipLine was placed on the knee. Adaptic, 4 x 4s, ABD, Webril and Perico wrap and PALOMA hose stockings were placed on the patient. He was awakened and taken to recovery in stable condition. ESTIMATED BLOOD LOSS: Approximately 200 mL. COMPLICATIONS: None. TRANSINT:[id number] Voice Confirmation ID: [id number] DOCUMENT ID: [id number] PIETRO MARCH DO at 0701 CC: EMILY PAYAN and RICHI DESHPANDE MD [id number] DICTATION DATE: 08/26/18 1606 POINT OF SALE ASSOCIATE: 08/26/18 2303 ADM IN [facility] [address] [place] [address]
--- NOTE | ~2018-08-19 | MORECARE ---
CASE MANAGEMENT DISCHARGE SUMMARY PATIENT: CHRISTOPHER UPTON UNIT: [id number] ADM DATE: 08/26/18 AGE: 73 : [birth year] SEX: M ROOM/BED: D.2208 AUTHOR: DMITRI MOORE PHYSICIAN: REFERRING PHYSICIAN: SHANIQUE MARCH DO DATE OF SERVICE: 08/27/18 Discharge Plan Patient Name: CHRISTOPHER UPTON [facility] [facility] 1945 Planned Disposition: Home with Home Health Anticipated Discharge Date: Discharge Date: Expected LOS: Initial Reviewer: [email or web address] Initial Review Date: 08/26/2018 Generated: 08/27/18 3:25 pm Patient Name: CHRISTOPHER UPTON Page 85490 at 1426 All edits/amendments must be made on the electronic document DICTATION DATE: 08/27/18 142 VENEER GLUE SPREADER: ELÍAS 08/27/18 142 RPT#: [id number] DC DATE: STATUS: ADM IN [facility] [address] [place] [address] END OF REPORT
[2018-08-19 12:04] LABS: BASOPHILS 0.2 % (0-2); EOSINOPHILS 0.7 % (0-7); HEMATOCRIT 39.5 % (42.0-54.0); HEMOGLOBIN 13.5 g/dL (13.5-17.5); IMMATURE GRANULOCYTES 0.4 % (0-5); MCHC 34.2 g/dL (31.0-37.0); MCV 93.6 fL (80.0-100.0); MEAN PLATELET VOLUME 10.2 fL (7.4-10.4); MONOCYTES 10.3 % (2-11); NEUTROPHILS 74.4 % (40-80); PLATELET COUNT 281 10x3/uL (130-400); RBC 4.22 10x6/uL (4.20-6.10); RDW 13.6 % (11.5-14.5); WBC 8.9 10x3/uL (4.8-10.8)
[2018-08-19 12:14] LABS: ANION GAP 10.9 mmol/L (8-16); CALCIUM 8.9 mg/dL (8.5-10.1); CARBON DIOXIDE 28.8 mmol/L (21.0-32.0); CREATININE - SERUM 1.1 mg/dL (0.6-1.3); POTASSIUM - SERUM 4.7 mmol/L (3.5-5.1)
[2018-08-19 12:20] LABS: APPEARANCE CLEAR (CLEAR); COLOR YELLOW (YELLOW); SPECIFIC GRAVITY 1.015 (1.005-1.020)
[2018-08-19 12:21] LABS: BILIRUBIN NEGATIVE (NEGATIVE); GLUCOSE NEGATIVE (NEGATIVE); KETONE NEGATIVE (NEGATIVE); NITRITE NEGATIVE (NEGATIVE); PROTEIN TRACE mg/dL (NEGATIVE); RED CELLS - URINE RARE /hpf (0-5); UROBILINOGEN NORMAL (NORMAL); WHITE CELLS - URINE NSEEN /hpf (0-5)
[2018-08-19 12:27] LABS: INR 1.02 (0.85-1.17); PROTIME 12.9 SECONDS (11.6-15.0)
[2018-08-19 12:28] LABS: APTT 33.4 SECONDS (22.8-39.4)
[2018-08-26 10:09] VITALS: BP 149/73; BMI 27.3
[2018-08-26 18:57] VITALS: BP 140/73; Ht 177.8 cm; Wt 85.5 kg
[2018-08-26 20:00] VITALS: BP 131/68
[2018-08-27] VITALS (7 sets, daily range): BP systolic 123–136; BP diastolic 52–65
[2018-08-27 05:17] LABS: HEMATOCRIT 35.1 % (42.0-54.0); MCH 31.5 pg (26.0-34.0); MCHC 34.2 g/dL (31.0-37.0); MCV 92.1 fL (80.0-100.0); MEAN PLATELET VOLUME 10.6 fL (7.4-10.4); RBC 3.81 10x6/uL (4.20-6.10); RDW 13.5 % (11.5-14.5); WBC 13.2 10x3/uL (4.8-10.8)
[2018-08-28] VITALS: BP 158/68
[2018-08-28 04:00] VITALS: BP 148/63
[2018-08-28 05:18] LABS: HEMATOCRIT 33.7 % (42.0-54.0); HEMOGLOBIN 11.6 g/dL (13.5-17.5); MCH 31.8 pg (26.0-34.0); MCHC 34.4 g/dL (31.0-37.0); MCV 92.3 fL (80.0-100.0); MEAN PLATELET VOLUME 10.8 fL (7.4-10.4); RBC 3.65 10x6/uL (4.20-6.10); RDW 13.5 % (11.5-14.5)
[2018-08-28 05:19] LABS: WBC 9.6 10x3/uL (4.8-10.8)
[2018-08-28 08:47] VITALS: BP 153/65
[2018-08-28] MEDS ORDERED: KEFLEX500 MG PO (12:31)
[2018-08-28] MEDS ORDERED: OXYCODONE HCL5 M1 PO (12:31)
[2018-08-28] MEDS ORDERED: ASPIRIN325 MG PO (12:32)
[2018-08-28 13:40] VITALS: BP 153/72
== END 2018-08-28 15:30 | disposition home health service (06) | DRG 470 ==
LOC: D.MS 08-26 09:20 → D.SDCHOLD 08-26 09:20 → D.MS 08-26 17:22
PROVIDERS: Orthopaedic Surgery
PROC: 0SRC0JZ Replacement of Right Knee Joint with Synthetic Substitute, Open Approach (ICD-10-PCS; principal; 2018-08-26 11:00)
DX: M17.11 Unilateral primary osteoarthritis, right knee (principal); I10 Essential (primary) hypertension; I25.10 Atherosclerotic heart disease of native coronary artery without angina pectoris; I50.9 Heart failure, unspecified

== ENCOUNTER 2018-10-13 13:29 | Day surgery (SDC) | payer MEDICARE, BC ==
[~2018-10-13] VITALS: Ht 177.8 cm; Wt 86.2 kg
[~2018-10-13 13:29] MED LIST changes: +KEFLEX500 MG PO; +OXYCODONE HCL5 M1 PO
[2018-10-13 13:54] LABS: HEMATOCRIT 38.1 % (42.0-54.0); HEMOGLOBIN 12.8 g/dL (13.5-17.5); MCH 31.4 pg (26.0-34.0); MCHC 33.6 g/dL (31.0-37.0); MCV 93.6 fL (80.0-100.0); MEAN PLATELET VOLUME 10.2 fL (7.4-10.4); RBC 4.07 10x6/uL (4.20-6.10); RDW 13.3 % (11.5-14.5)
[2018-10-13 14:12] VITALS: BP 148/61; Ht 177.8 cm; Wt 86.2 kg
[2018-10-13] MEDS ORDERED: SULFAMETHOXAZOL1 TA3 PO (20:01)
[2018-10-13] MEDS ORDERED: HYDROCODON-ACE1 EAC7 PO (20:02)
--- NOTE | 2018-10-13 21:10 | NUR ---
PT ARRIVED TO THE FLOOR. ALERT AND ORIENTED. NO SIGNS OF DISTRESS. BREATHING EVEN AND UNLABORED. VITAL SIGNS STABLE. PT HAS ATE AND DRINK WATER. PT STATES READY TO LEAVE. GETTING DISCHARGE PAPERS TOGETHER.
--- NOTE | 2018-10-14 16:32 | OP ---
PATIENT NAME: CHRISTOPHER UPTON MEDICAL RECORD: [id number] :[birth year] LOCATION:DLeeannaOPS ADMISSION DATE: SURGEON: PIETRO MARCH DO DATE OF OPERATION: 10/13/2018 PROCEDURE PERFORMED: Right knee abscess I&D, superficial suture abscess. PREOPERATIVE DIAGNOSIS: Superficial suture abscess of the right knee. POSTOPERATIVE DIAGNOSIS: Superficial suture abscess of the right knee. INDICATIONS: Mr. Upton is a 73-year-old male who 6 weeks ago underwent right total knee arthroplasty. He presented to my office yesterday with what appeared to be a suture abscess at the superior pole of his total knee incision and it was draining some purulent fluid, was expressed in my office and he was placed on Bactrim due to the fact he had a total knee on that side and not wanting into getting worse or awruln-ru-bsqfr communicating to the total knee, told him we would do an I&D today to wash it out and double check. He was okay with that and signed the consent knowing the risks and benefits of the procedure including infection, bleeding, damage to nerve or vessels, need for further surgery, blood clots, and even . SURGEON: Pietro March DO DESCRIPTION OF THE PROCEDURE: The patient was taken to the operative suite, laid in the supine position, given 1250 mg of vancomycin. The right lower extremity was prepped and draped in sterile fashion. A timeout was performed. Everyone was agreement with the correct side, site, patient and procedure. Incision then began at the superior pole of the prior total knee incision where the abscess was. There was some hardening underneath the skin. A 15 blade was used to make about a 4 cm incision. Dissection was made down to it. There was no purulence seen. There was some fluid; however, it was not purulent in nature, it was serous. Cultures were then taken at that time and then any tissue that looked even remotely ominous was removed with pickup and scalpel, the knee itself was checked as far as any communication with the joint and there was none. The sutures were still intact from his total knee and there was no fluid expressed from the knee and there was no communication to the joint at all. This was checked thoroughly. The Bactisure was then used 1 liter in the superficial area to irrigate it and then 3 liters of normal saline were used to irrigate after that. Vancomycin powder and tobramycin powder were then placed in the site and then the skin was closed with 3-0 Monocryl in an inverted interrupted fashion and then 2-0 Prolene in a horizontal mattress fashion on the skin. Adaptic, 4 x 4's, ABD, Webril, and an Perico wrap were then placed on the knee. The patient was awakened and taken to recovery in stable condition. ESTIMATED BLOOD LOSS: Minimal. COMPLICATIONS: None. TRANSINT:[id number] Voice Confirmation ID: [id number] DOCUMENT ID: [id number] OPERATIVE REPORT [id number] CHRISTOPHER UPTON MICHAEL D, DO at 1632 CC: [id number] DICTATION DATE: 10/13/182005 FIELD CROP FARMWORKER: 10/13/18 2344 [facility] 10/13/18 [address] [place] [address]
== END 2018-10-13 23:03 | disposition home or self-care (01) ==
LOC: D.OPS 13:29 → D.PAN 15:30 → D.OPS 16:00 → D.PAN 16:15 → D.OPS 16:15 → D.MS 20:24 → D.OPS 23:03
PROVIDERS: Anesthesiology
DX: T81.41XA Infection following a procedure, superficial incisional surgical site, initial encounter (principal); L02.415 Cutaneous abscess of right lower limb

== ENCOUNTER → 2018-10-19 18:53 | Outpatient (CLI) | payer MEDICARE, BC ==
[2018-10-13 14:12] VITALS: BMI 27.3
[~2018-10-19 18:53] MED LIST changes: +HYDROCODON-ACE1 EAC7 PO; +SULFAMETHOXAZOL1 TA3 PO
[2018-10-19 19:33] LABS: HEMATOCRIT 33.4 % (42.0-54.0); HEMOGLOBIN 11.1 g/dL (13.5-17.5); MCH 31.2 pg (26.0-34.0); MCHC 33.2 g/dL (31.0-37.0); MCV 93.8 fL (80.0-100.0); MEAN PLATELET VOLUME 10.6 fL (7.4-10.4); PLATELET COUNT 279 10x3/uL (130-400); RBC 3.56 10x6/uL (4.20-6.10); RDW 13.5 % (11.5-14.5); WBC 8.1 10x3/uL (4.8-10.8)
[2018-10-19 19:42] LABS: EOSINOPHILS 8 % (0-7); LYMPHOCYTES 16 % (15-50); MONOCYTES 9 % (2-11); NEUTROPHILS 67 % (40-80); PLATELET ESTIMATE NORMAL
[2018-10-19 20:43] LABS: ERYTHROCYTE SEDIMENTATION RATE 15 mm/hr (0-20)
== END | disposition home or self-care (01) ==
LOC: D.LABREF 18:53
PROVIDERS: Orthopaedic Surgery
DX: M25.561 Pain in right knee (principal)

== ENCOUNTER → 2018-12-11 17:43 | Outpatient (CLI) | payer MEDICARE, BC ==
[2018-10-13 14:12] VITALS: BMI 27.3
[2018-12-11 18:42] LABS: BASOPHILS 0.5 % (0-2); EOSINOPHILS 0.8 % (0-7); HEMATOCRIT 34.4 % (42.0-54.0); HEMOGLOBIN 11.7 g/dL (13.5-17.5); IMMATURE GRANULOCYTES 0.8 % (0-5); LYMPHOCYTES 18.5 % (15-50); MEAN PLATELET VOLUME 10.9 fL (7.4-10.4); MONOCYTES 9.2 % (2-11); NEUTROPHILS 70.2 % (40-80); PLATELET COUNT 285 10x3/uL (130-400); RBC 3.78 10x6/uL (4.20-6.10); WBC 8.8 10x3/uL (4.8-10.8)
[2018-12-11 20:22] LABS: ERYTHROCYTE SEDIMENTATION RATE 5 mm/hr (0-20)
== END | disposition home or self-care (01) ==
LOC: D.LABREF 17:43
PROVIDERS: ATTEND Orthopaedic Surgery
DX: M25.561 Pain in right knee (principal)

== ENCOUNTER → 2020-02-17 12:28 | Outpatient (CLI) | payer MEDICARE, BC ==
[2018-10-13 14:12] VITALS: BMI 27.3
[2020-02-17 12:59] LABS: BASOPHILS 0.6 % (0-2); EOSINOPHILS 1.6 % (0-7); HEMOGLOBIN 13.3 g/dL (13.5-17.5); IMMATURE GRANULOCYTES 0.7 % (0-5); LYMPHOCYTES 16.6 % (15-50); MCH 31.6 pg (26.0-34.0); MCHC 33.3 g/dL (31.0-37.0); MEAN PLATELET VOLUME 10.9 fL (7.4-10.4); MONOCYTES 12.9 % (2-11); NEUTROPHILS 67.6 % (40-80); PLATELET COUNT 268 10x3/uL (130-400); RBC 4.21 10x6/uL (4.20-6.10); RDW 13.4 % (11.5-14.5); WBC 8.7 10x3/uL (4.8-10.8)
[2020-02-17 14:43] LABS: ERYTHROCYTE SEDIMENTATION RATE 6 mm/hr (0-20)
== END | disposition home or self-care (01) ==
LOC: D.LABREF 12:28
PROVIDERS: ATTEND Orthopaedic Surgery
DX: M25.561 Pain in right knee (principal)

== ENCOUNTER 2020-02-22 05:09 | Day surgery (SDC) | payer MEDICARE, BC ==
[~2020-02-22] VITALS: Ht 177.8 cm; Wt 83.0 kg
[2020-02-22 05:36] LABS: HEMATOCRIT 42.2 % (42.0-54.0); HEMOGLOBIN 14.1 g/dL (13.5-17.5); MCH 31.2 pg (26.0-34.0); MCHC 33.4 g/dL (31.0-37.0); MCV 93.4 fL (80.0-100.0); MEAN PLATELET VOLUME 10.3 fL (7.4-10.4); RBC 4.52 10x6/uL (4.20-6.10); RDW 13.2 % (11.5-14.5); WBC 7.8 10x3/uL (4.8-10.8)
[2020-02-22 06:17] VITALS: BP 160/69; Ht 177.8 cm; Wt 83.0 kg
[2020-02-22] MEDS ORDERED: BACTRIM 400-801 TAB PO (07:32)
[2020-02-22] MEDS ORDERED: HYDROCODON-ACE1 EAC7 PO (07:34)
--- NOTE | 2020-02-22 09:45 | NUR ---
0930 AWAKE & ALERT, DRESSED. GIVEN DISCHARGE INFORMATION INCLUDING: RX: NORCO 5/325MG, MED REC, RTC. APPT. (ORDER FOR 10-14 DAY RTC. DECEMBER @ [facility] STATES TO KEEP 02/24/20 @ 1100 APPT), [facility] OUTPATIENT D/C INSTRUCTIONS, & HANDOUT: WOUND INCISION & DRAINAGE D/C INSTRUCTIONS. PT VOICED UNDERSTANDING. TO PRIVATE CAR PER WHEELCHAIR BY STAFF. ACCOMPANIED BY . DRIVEN BY SON-IN-LAW. Susie FRAGOSO R.N.
[2020-02-22 12:07] LABS: EOS BF 1 %; MACROPHAGES BF 40 %; MESOTHELIALS BF 2 %; NEUT - BF 22 %
--- NOTE | 2020-02-22 13:30 | OP ---
PATIENT NAME: YAW UPTON MEDICAL RECORD: [id number] :[birth year] LOCATION:DLeeannaOPS ADMISSION DATE: SURGEON: PIETRO MARCH DO DATE OF OPERATION: 02/22/2020 PROCEDURE PERFORMED: Right knee irrigation and debridement. PREOPERATIVE DIAGNOSIS: Right knee drainage. POSTOPERATIVE DIAGNOSIS: Right knee drainage. INDICATIONS: Mr. Yaw Upton is a 74-year-old male who had a right knee done a little over a year ago, did well postop, did have an I&D for a suture abscess that had healed up since then. He said he had been hard on his knee the last few weeks and then started draining out the inferior pole, appeared to be joint or bursal fluid. He had labs drawn, which did not show any type of infection. No elevated ESR, CRP or white count, appeared to just be a bursal fluid that is being expressed out and it was not purulent. We tried nonoperative treatments including pressure dressing to no avail, it kept draining and we put him on the schedule for today. I told him we will do an I&D; hopefully, would not go down to the joint and it was just the prepatellar bursa that was causing the problems. He was okay with that and was aware of the risks including infection, bleeding, damage to nerves and vessels, need for further surgery. I explained that the total knee antibiotic spacer placement, continued pain, continued drainage and blood clots, and even and he signed the consent. SURGEON: Pietro March DO DESCRIPTION OF PROCEDURE: The patient was taken to the operative suite, laid in the supine position, given general anesthetic and LMA was placed. He was given 2 grams of Ancef preoperatively. Right lower extremity was prepped and draped in sterile fashion. Time-out was performed. Everyone was in agreeance with the correct site, side, patient and procedure. We then elevated the right lower extremity and inflated the tourniquet. We then made an incision along the old total knee incision and bursal fluid came out. It was clear in nature and it was cultured. I then noted that he had some bursal tissue there and this was cleaned off with a curette. I then noticed some swelling in the knee joint itself. After trying to express any joint fluid out none came out of the capsule and it did not appear to be draining from the knee joint, so I put an 18-gauge needle and aspirated approximately 5 mL of leno-colored fluid out of the joint and sent it for cell count, Gram stain and culture. I then irrigated with 3 liters normal saline, curetting some of the bursal tissue off at that time. The tourniquet was then let down, it was up for a total of 11 minutes. Akilah Romero, certified executive chef then closed with 2-0 Vicryl inverted interrupted fashion. ZipLine was placed on the knee. He was then dressed with Adaptic, 4 x 4s, ABD, Webril and Perico wrap was awakened and taken to recovery in stable condition. BLOOD LOSS: Minimal. COMPLICATIONS: None. TRANSINT:[id number] Voice Confirmation ID: [id number] DOCUMENT ID: [id number] OPERATIVE REPORT [id number] YAW UPTON,PIETRO Thomas DO at 1330 CC: [id number] DICTATION DATE: 02/22/20728 CONCRETE PAVER: 02/22/20 1323 [facility] 02/22/20 [id number] [place] [address]
== END 2020-02-22 09:30 | disposition home or self-care (01) ==
LOC: D.OPS 05:09 → D.PAN 07:00 → D.OPS 07:00
PROVIDERS: Anesthesiology; ATTEND Orthopaedic Surgery
DX: M25.461 Effusion, right knee (principal); I25.2 Old myocardial infarction; E78.5 Hyperlipidemia, unspecified; K21.9 Gastro-esophageal reflux disease without esophagitis; I10 Essential (primary) hypertension

== ENCOUNTER 2021-01-19 06:25 | Emergency (ER) | payer MEDICARE, BC ==
[~2021-01-19] VITALS: Ht 177.8 cm; Wt 103.2 kg
[~2021-01-19 06:25] MED LIST changes: +BACTRIM 400-801 TAB PO
[2021-01-19 06:30] VITALS: Ht 177.8 cm; Wt 103.2 kg
[2021-01-19 06:52] LABS: BASOPHILS 0.2 % (0-2); EOSINOPHILS 0.2 % (0-7); HEMATOCRIT 38.4 % (42.0-54.0); HEMOGLOBIN 13.4 g/dL (13.5-17.5); IMMATURE GRANULOCYTES 0.3 % (0-5); LYMPHOCYTE ABS# 0.87 10x3/uL (1.32-3.57); LYMPHOCYTES 6.6 % (15-50); MCH 30.9 pg (26.0-34.0); MCHC 34.9 g/dL (31.0-37.0); MCV 88.5 fL (80.0-100.0); MEAN PLATELET VOLUME 10.2 fL (7.4-10.4); MONOCYTES 14.1 % (2-11); NEUTROPHIL ABS# 10.36 10x3/uL (1.78-5.38); NEUTROPHILS 78.6 % (40-80); PLATELET COUNT 291 10x3/uL (130-400); RBC 4.34 10x6/uL (4.20-6.10); RDW 12.7 % (11.5-14.5); WBC 13.2 10x3/uL (4.8-10.8)
[2021-01-19] MEDS ORDERED: ZYLOPRIM300 MG PO (06:52)
[2021-01-19 07:17] LABS: APTT 32.5 SECONDS (22.8-39.4); INR 1.13 (0.85-1.17); PROTIME 13.5 SECONDS (11.6-15.0)
[2021-01-19 07:49] LABS: D-DIMER-QUANTITATIVE 2.5 ug/mLFEU (0.20-0.54)
[2021-01-19 08:06] VITALS: BP 139/51
[2021-01-19 08:29] LABS: CALC OSMOLALITY 257 mosm/kg (275-300); CALCIUM 9.1 mg/dL (8.5-10.1); CARBON DIOXIDE 24.1 mmol/L (21.0-32.0); CHLORIDE - SERUM 95 mmol/L (98-107); GLUCOSE 125 mg/dL (74-106); POTASSIUM - SERUM 4.3 mmol/L (3.5-5.1); SODIUM 128 mmol/L (136-145); UREA NITROGEN 13 mg/dL (7-18); eGFR NON AFRICAN AMERICAN 78 mL/min (90-120)
[2021-01-19 08:44] LABS: ALBUMIN 3.7 g/dL (3.4-5.0); ALKALINE PHOSPHATASE 63 U/L (30-120); ALT (SGPT) 26 U/L (10-68); BILIRUBIN - TOTAL 0.85 mg/dL (0.2-1.3); C-REACTIVE PROTEIN 3.7 mg/dL (0.0-0.9); CREATINE KINASE 150 UL (21-232); LIPASE 97 U/L (73-393); MAGNESIUM - SERUM 1.8 mg/dL (1.8-2.4); PRO BNP 550 pg/mL (0-125); PROTEIN - SERUM 6.9 g/dL (6.4-8.2); THYROID STIMULATING HORMONE 0.78 uIU/mL (0.36-3.74)
[2021-01-19 08:45] LABS: TROPONIN-I < 0.017 ng/mL (0.000-0.060)
== END 2021-01-19 09:27 | disposition home or self-care (01) ==
LOC: D.ER 06:25
PROVIDERS: Family Medicine
DX: R55 Syncope and collapse (principal); I25.10 Atherosclerotic heart disease of native coronary artery without angina pectoris; I10 Essential (primary) hypertension; K21.9 Gastro-esophageal reflux disease without esophagitis